=== PATIENT | male | born 1970 | race Caucasian/White ===

== ENCOUNTER 2023-12-10 20:12 | Emergency (ER) | payer OTHER ==
[2023-12-10] MEDS: Proparacaine 0.5% Ophth Soln 15 ML Bottle EYELF STA (20:56)
[2023-12-10] MEDS: Tetracaine HCl/PF 0.5% 4 ML Bottle EYELF STA (21:45)
[2023-12-10] MEDS: Gentamicin 0.3% Ophth Soln 5 ML Bottle EYELF STA (22:41)
== END 2023-12-10 22:49 | disposition home or self-care (01) ==
LOC: MW.ED 20:12
DX: S05.02XA Injury of conjunctiva and corneal abrasion without foreign body, left eye, initial encounter (principal); T26.42XA Burn of left eye and adnexa, part unspecified, initial encounter; W20.8XXA Other cause of strike by thrown, projected or falling object, initial encounter
CPT/HCPCS: 99283; J3490